=== PATIENT | male | born 1960 | race Caucasian/White ===

== ENCOUNTER 2022-06-11 08:28 | Day surgery (SDC) | payer OTHER ==
[2022-06-11] MEDS ORDERED: Ringers Lactate 1,000 ML IV ONE (08:48)
[2022-06-11] MEDS ORDERED: CEFAZOLIN SODIUM 1 GM/VIAL ONE (08:48)
[2022-06-11] MEDS ORDERED: BUPIVACAINE 0.25% PF 10 ML VIAL ONE (09:58)
[2022-06-11] MEDS ORDERED: propofoL 200 MG/20 ML VIAL IV ONE (10:44)
[2022-06-11] MEDS ORDERED: FENTANYL CITR 100 MCG/2 ML ONE (10:44)
[2022-06-11] MEDS ORDERED: MIDAZOLAM HCL 2 MG/2 ML INJ ONE (10:45)
[2022-06-11] MEDS ORDERED: LIDOCAINE 2% MPF 5 ML VIAL ONE (10:45)
[2022-06-11 13:11] VITALS: BP 118/74; TEMP 97.4; O2SAT 100
--- NOTE | 2022-06-11 13:17 | P.OP ---
Preoperative diagnosis: RIGHT lower Extremity Squamous Cell Skin Cancer Postoperative diagnosis: RIGHT lower Extremity Squamous Cell Skin Cancer Primary procedure: Wide local excision of RIGHT lower Extremity Squamous Cell Skin Cancer Secondary procedure: Application of Amniofill Placental Graft Anesthesia: MAC + Local Estimated blood loss: <2cc Specimen: Skin - short stitch @ 12 oclock, long @ 9oclock Findings: ~ 1.9 cm squamous cell skin cancer Complications: None Implants: Memedex Amniofill 500mg Transferred to: Recovery Room Condition: Good
--- NOTE | 2022-06-11 23:15 | OP ---
Date of Procedure: 06/11/2022 Surgeon: Connor De La Vega MD, Preoperative Diagnosis: Right lower extremity squamous cell skin cancer, biopsy proven. Postoperative Diagnosis: Right lower extremity squamous cell skin cancer, biopsy proven. Procedures Performed: A wide local excision of right lower extremity squamous cell skin cancer. Sec ondary procedure was application of AmnioFill placental graft tissue. Anesthesia: MAC plus local with 1% lidocaine with epinephrine. Estimated Blood Loss: Less than 2 cc. Specimen: Skin with orientation sutures, suture short superior and long lateral at 12 o'clock and 9 o'clock respectively. Findings: 1.9 cm proximal biopsy-proven squamous cell skin cancer of the right lower extremity along the mid tibia. Complications: None. Implants: MiMedx AmnioFill 500 mg vial applied. Disposition: The patient was transferred to recovery room in good condition. Procedure In Detail: After informed was obtained, patient was brought to the operating room and prep ped and draped in the usual sterile fashion. After adequate anesthesia was achieved with IV sedation , I anesthetized the area around the right lower extremity over the mid tibia down through subcutaneo us tissues using 1% lidocaine with epinephrine. I marked previously the margins to be excised with a 0.6 mm margin circumferentially around the site of biopsy-proven squamous cell skin cancer in questi on with a somewhat elliptical orientation and a long axis to extend those by 0.7 to 0.75 cm. I then made an incision down through subcutaneous tissues using a 15 blade circumferentially around. I then used electrocautery to separate the skin down to the subcutaneous plane and adipose tissue. At this point, I placed orientation sutures, short superior and long lateral at the 12 o'clock and 9 o'clock spots respectively. I then used electrocautery to ligate the skin ellipse and sent it off for patho logic examination, after orientation was ensured. At this point, I achieved hemostasis with electroc autery and irrigated the area copiously. I then circumferentially undermined the area using a combin ation of electrocautery and blunt dissection and reapproximated partially the edges of the superior a nd inferior aspect of the wound using interrupted 3-0 nylon suture with simple interrupted sutures wi th good apposition of the skin. As there was increased tension along this area, I applied the AmnioF ill placental graft tissue to the entire surface area. It was in powder form and applied quite easil y. At this point, it was hydrated appropriately by the tissue itself and did not require any additio nal application. At this point, I placed an Adaptic cover over the AmnioFill and a damp saline soake d gauze was applied to the top and a dry gauze over the top. I then wrapped the entire wound with a Kerlix, followed by a 4 inch Graham wrap. The patient tolerated the procedure without evidence of any c omplication and transferred to PACU in good condition. All counts were correct at the end of the han e. URBAN/MARISOL Voice ID: [id number] Report ID: [id number]
== END 2022-06-11 13:00 | disposition home or self-care (01) ==
LOC: OR 08:28
PROVIDERS: ATTEND Surgery
PROC: 0JBN0ZZ Excision of Right Lower Leg Subcutaneous Tissue and Fascia, Open Approach (ICD-10-PCS; principal; 2022-06-11 10:00)
DX: C44.722 Squamous cell carcinoma of skin of right lower limb, including hip (principal)
CPT/HCPCS: 11602; 15271; 88305; J2704; J2001; J2250; J3010; J7120; J0690; 88304